=== PATIENT | male | born 1945 | race Caucasian/White ===

== ENCOUNTER 2024-07-24 14:47 | Outpatient (REF) | payer MEDICARE, OTHER, SELFPAY ==
[2024-07-25 11:07] LABS: Percent Free Prostate Spec Ag NOT CALCULATED % (calc) (>25); Prostate Specific Ag Total 11.6 ng/mL (< OR = 4.0)
== END 2024-07-24 14:48 | disposition home or self-care (01) ==
LOC: HO.LAB 14:47
PROVIDERS: PCP Internal Medicine Medical Oncology; Visit Provider Internal Medicine Medical Oncology
DX: E11.9 Type 2 diabetes mellitus without complications (principal); R97.20 Elevated prostate specific antigen [PSA]
CPT/HCPCS: 36415; 84154